=== PATIENT | female | born 1990 | race African-American/Black ===

== ENCOUNTER 2016-07-10 15:10 | Emergency (ER) | payer MEDICAID ==
[~2016-07-10] VITALS: Ht 165.1 cm; Wt 54.4 kg
[2016-07-10 15:44] VITALS: BP 112/61
--- NOTE | 2016-07-10 17:10 | NUR ---
26/F BIB SELF C/O LEFT SIDED RIB PAIN D/T FALL X2 DAYS.DENIES LOC; HX ASTHMA. DENIES N/V/D; SKIN IS PINK/WARM/DRY; AAOX4 WITH EVEN AND STEADY GAIT; LUNGS CLEAR BL; HR EVEN AND REGULAR; PT DENIES ANY FEVER, CP, SOB, OR COUGH AT THIS TIME; PATIENT STATES PAIN OF 10/10 AT THIS TIME; VSS; PATIENT POSITIONED FOR COMFORT; HOB ELEVATED; BEDRAILS UP X2; BED DOWN. ER MD MADE AWARE OF PT STATUS.
[2016-07-10 17:25] VITALS: BP 119/66
--- NOTE | 2016-07-10 17:25 | NUR ---
Patient discharged with v/s stable. Written and verbal after care instructions given and explained. Patient alert, oriented and verbalized understanding of instructions. Ambulatory with steady gait. All questions addressed prior to discharge. ID band removed. Patient advised to follow up with PMD. Rx of MOTRIN & NORCO given. Patient educated on indication of medication including possible reaction and side effects. Opportunity to ask questions provided and answered.
== END 2016-07-10 17:25 | disposition home or self-care (01) ==
LOC: MED 15:10
DX: R07.81 Pleurodynia (principal); I10 Essential (primary) hypertension; J45.909 Unspecified asthma, uncomplicated; E03.9 Hypothyroidism, unspecified